=== PATIENT | male | born 1995 | race Hispanic/Latino ===

== ENCOUNTER 2021-02-17 17:10 | Emergency (ER) ==
[~2021-02-17] VITALS: Ht 177.8 cm; Wt 76.8 kg
== END 2021-02-17 22:53 | disposition left against medical advice (07) ==
LOC: M ED 17:10
DX: Z53.29 Procedure and treatment not carried out because of patient's decision for other reasons (principal)

== ENCOUNTER 2021-12-28 10:07 | Emergency (ER) | payer OTHER ==
[~2021-12-28] VITALS: Ht 177.8 cm; Wt 79.0 kg
[2021-12-28 10:09] VITALS: BP 130/67
[2021-12-28] MEDS ORDERED: cefTRIAXone 500MG VIAL (J0696 PER 250MG) IM ONE (11:40)
[2021-12-28] MEDS ORDERED: DOXYCYCLINE HYCLATE 100MG TABLET PO ONE (11:40)
[2021-12-28] MEDS ORDERED: LIDOCAINE 1% SDV 5ML VIAL DILUENT ONE (11:40)
[2021-12-28] MEDS ORDERED: DOXY-443 PO (11:54)
[2021-12-28 11:57] LABS: AMORPHOUS SEDIMENT, URINE LARGE AMOUNT (NEGATIVE); BACTERIA, URINE SMALL AMOUNT; HYALINE CAST, URINE NONE SEEN /lpf (0-1); MUCUS, URINE MOD AMOUNT (NEGATIVE); RBC, URINE 0-1 /hpf (0-3); SQUAMOUS EPITHELIAL CELL URINE SMALL AMOUNT /hpf (SMALL AMT)
[2021-12-28 14:07] LABS: GC DNA AMPLIFICATION NEGATIVE (NEGATIVE)
== END 2021-12-28 12:06 | disposition home or self-care (01) ==
LOC: M ED 10:07
DX: N50.89 Other specified disorders of the male genital organs (principal); R30.0 Dysuria
CPT/HCPCS: 81000; 81015; 87086; 87661; 87810; 87850; 99282; J0696